=== PATIENT | male | born 1960 | race Caucasian/White ===

== ENCOUNTER → 2023-01-26 | Outpatient (REF) | payer OTHER, BC | LOC: M SFHCDERM 18:12 | PROVIDERS: ATTEND Nurse Practitioner Family | DX: L82.1 Other seborrheic keratosis (principal) ==

== ENCOUNTER → 2023-10-21 | Outpatient (REF) | payer BC, OTHER | LOC: M LAB REF 11:31 | PROVIDERS: ATTEND Internal Medicine Gastroenterology | DX: A04.8 Other specified bacterial intestinal infections (principal) ==